=== PATIENT | male | born 1955 | race African-American/Black ===

== ENCOUNTER 2017-09-06 08:58 | Inpatient (IN) ==
[2017-09-06] MEDS ORDERED: SODIUM CHLORIDE 0.9% 1,000 ML IV STA (09:56)
[2017-09-06] MEDS ORDERED: cefTRIAXone 1,000 MG in SODIUM CHLORIDE 0.9% 100 ML IV STA (10:55)
[2017-09-06] MEDS ORDERED: GENTAMICIN INJ 140 MG in SODIUM CHLORIDE 0.9% 100 ML IV STA (10:55)
[2017-09-06 11:24] LABS: Basophils % 0.2 % (0.0-0.8); Eosinophils # 0.1 10*3/uL (0.0-0.87); Eosinophils % 0.9 % (0.00-10.9); Hematocrit 39.3 VOL% (42.0-52.0); Hemoglobin 12.5 GM/DL (14.0-18.0); Immature Granulocytes % 0.7 %; Immature Granulocytes Absolute 0.06 #; Lymphocytes # 0.9 10*3/uL (1.4-4.0); Lymphocytes % 10.1 % (21.2-54.2); Mean Corpuscular HGB Conc 31.8 GM/DL (32-36); Mean Corpuscular Hemoglobin 28 PG (27-34); Mean Corpuscular Volume 88.1 FL (87-102); Mean Platelet Volume 8.9 FL (9.6-12.0); Monocytes % 10.6 % (1.7-12.7); Neutrophils # 6.9 10*3/uL (1.4-7.4); Neutrophils % 77.5 % (38.7-73.9); Platelet Count 399 T/CUMM (130-400); Red Blood Count 4.46 MC/CUMM (3.8-5.5); Red Cell Distribution Width 13.9 % (9.3-17.3); White Blood Count 8.9 T/CUMM (4-12)
[2017-09-06 11:41] LABS: Apearance,Urine CLEAR (Clear); Bilirubin,Urine Negative (Negative); Blood, Urine Negative (Negative); Glucose,Urine (UA) Negative (Negative); Ketones,Urine Negative (Negative); Nitrite,Urine Negative (Negative); Protein,Urine Negative; RBC,Urine 1 /HPF (0-4); Squamous Epithelial Cell,Urine Occasional /HPF (0-10); Urine Color Straw (Yellow); Urine Specific Gravity 1.002 (1.001-1.035); Urine Urobilinogen < 2.0 EU/DL (0.2-1.0); WBC,Urine <1 /HPF (0-6)
[2017-09-06 11:45] LABS: Calcium 9.4 MG/DL (8.5-10.1); Osmolality,Calculated 272.7 MOS/KG (273-304); Potassium 4.1 MMOL/L (3.5-5.1)
[2017-09-06] MEDS ORDERED: HYDROCORTISONE 25 MG SUPP RECTAL PRN (12:28)
[2017-09-06] MEDS ORDERED: MECLIZINE 25 MG TABLET PO PRN (12:28)
[2017-09-06] MEDS ORDERED: ONDANSETRON 4 MG/2 ML VIAL IV PRN (13:03)
[2017-09-06] MEDS ORDERED: ACETAMINOPHEN 325 MG TABLET PO PRN (13:03)
[2017-09-06] MEDS: cefTRIAXone 1,000 MG in SYRINGE 1 EACH IV SCH (15:10)
[2017-09-06] MEDS: SODIUM CHLORIDE 0.9% 1,000 ML IV SCH (16:04)
[2017-09-06] MEDS ORDERED: ASPIRIN 325 MG TABLET ONE (20:00)
[2017-09-06] MEDS ORDERED: NITROGLYCERIN SL 0.4 MG TABLET SL ONE (20:00)
[2017-09-06] MEDS: GENTAMICIN INJ 160 MG in SODIUM CHLORIDE 0.9% 100 ML IV SCH (20:55)
[2017-09-06] MEDS: METOPROLOL TARTRATE 50 MG TABLET PO SCH (20:58)
[2017-09-06] MEDS: DOCUSATE SODIUM 100 MG CAPSULE PO SCH (20:58)
[2017-09-06] MEDS: FLUTICASONE 50 MCG NASAL SPRAY 16 GM BOTTLE BOTH NARES SCH (20:58)
[2017-09-06] MEDS: FLUTICASONE/SALMETEROL 250-50 DISKUS 14 DOSE INH SCH (21:01)
[2017-09-07] MEDS: SODIUM CHLORIDE 0.9% 1,000 ML IV SCH ×3 (02:22→14:18)
[2017-09-07] MEDS: GENTAMICIN INJ 160 MG in SODIUM CHLORIDE 0.9% 100 ML IV SCH ×3 (03:36→19:59)
[2017-09-07] MEDS: TAMSULOSIN 0.4 MG CAPSULE PO SCH (08:58)
[2017-09-07] MEDS: MELOXICAM 7.5 MG TABLET PO SCH (08:58)
[2017-09-07] MEDS: PANTOPRAZOLE 40 MG TABLET PO SCH ×2 (08:59→09:38)
[2017-09-07] MEDS: DOCUSATE SODIUM 100 MG CAPSULE PO SCH ×2 (08:59→19:59)
[2017-09-07] MEDS: ACETAMINOPHEN/CODEINE 300-30 MG TABLET PO PRN ×2 (08:59→18:46)
[2017-09-07] MEDS: METOPROLOL TARTRATE 50 MG TABLET PO SCH ×2 (09:00→19:59)
[2017-09-07] MEDS: LOSARTAN 50 MG TABLET PO SCH (09:00)
[2017-09-07] MEDS: FLUTICASONE/SALMETEROL 250-50 DISKUS 14 DOSE INH SCH ×2 (09:00→20:07)
[2017-09-07] MEDS: FLUTICASONE 50 MCG NASAL SPRAY 16 GM BOTTLE BOTH NARES SCH ×2 (09:02→20:08)
[2017-09-07] MEDS: cefTRIAXone 1,000 MG in SYRINGE 1 EACH IV SCH (14:13)
[2017-09-07] MEDS: ENOXAPARIN 40 MG/0.4 ML SYRINGE SUBCUT SCH (14:17)
[2017-09-08] MEDS: SODIUM CHLORIDE 0.9% 1,000 ML IV SCH ×2 (00:42→07:51)
[2017-09-08] MEDS: GENTAMICIN INJ 160 MG in SODIUM CHLORIDE 0.9% 100 ML IV SCH ×3 (03:44→19:59)
[2017-09-08 06:57] LABS: Calcium 8.6 MG/DL (8.5-10.1); Potassium 4.7 MMOL/L (3.5-5.1)
[2017-09-08 07:04] LABS: Basophils % 0.2 % (0.0-0.8); Eosinophils # 0.1 10*3/uL (0.0-0.87); Eosinophils % 1.5 % (0.00-10.9); Hematocrit 36.4 VOL% (42.0-52.0); Hemoglobin 11.4 GM/DL (14.0-18.0); Immature Granulocytes % 0.2 %; Immature Granulocytes Absolute 0.01 #; Lymphocytes # 0.9 10*3/uL (1.4-4.0); Lymphocytes % 13.9 % (21.2-54.2); Mean Corpuscular HGB Conc 31.3 GM/DL (32-36); Mean Corpuscular Hemoglobin 28 PG (27-34); Mean Corpuscular Volume 88.6 FL (87-102); Mean Platelet Volume 9.3 FL (9.6-12.0); Monocytes # 0.6 10*3/uL (0.11-0.8); Monocytes % 9.5 % (1.7-12.7); Neutrophils # 4.9 10*3/uL (1.4-7.4); Neutrophils % 74.7 % (38.7-73.9); Platelet Count 441 T/CUMM (130-400); Red Blood Count 4.11 MC/CUMM (3.8-5.5); Red Cell Distribution Width 13.6 % (9.3-17.3); White Blood Count 6.5 T/CUMM (4-12)
[2017-09-08] MEDS: PANTOPRAZOLE 40 MG TABLET PO SCH ×2 (09:52→09:56)
[2017-09-08] MEDS: DOCUSATE SODIUM 100 MG CAPSULE PO SCH ×2 (09:52→20:03)
[2017-09-08] MEDS: METOPROLOL TARTRATE 50 MG TABLET PO SCH ×2 (09:52→21:08)
[2017-09-08] MEDS: TAMSULOSIN 0.4 MG CAPSULE PO SCH (09:52)
[2017-09-08] MEDS: LOSARTAN 50 MG TABLET PO SCH (09:52)
[2017-09-08] MEDS: MELOXICAM 7.5 MG TABLET PO SCH (09:52)
[2017-09-08] MEDS: FLUTICASONE/SALMETEROL 250-50 DISKUS 14 DOSE INH SCH ×2 (09:53→20:03)
[2017-09-08] MEDS: FLUTICASONE 50 MCG NASAL SPRAY 16 GM BOTTLE BOTH NARES SCH ×2 (09:53→20:03)
[2017-09-08] MEDS: cefTRIAXone 1,000 MG in SYRINGE 1 EACH IV SCH (14:49)
[2017-09-08] MEDS: ENOXAPARIN 40 MG/0.4 ML SYRINGE SUBCUT SCH (14:50)
[2017-09-09] MEDS: GENTAMICIN INJ 160 MG in SODIUM CHLORIDE 0.9% 100 ML IV SCH ×3 (03:23→20:58)
[2017-09-09] MEDS: FLUTICASONE 50 MCG NASAL SPRAY 16 GM BOTTLE BOTH NARES SCH ×2 (09:33→21:01)
[2017-09-09] MEDS: DOCUSATE SODIUM 100 MG CAPSULE PO SCH ×2 (09:33→21:00)
[2017-09-09] MEDS: LOSARTAN 50 MG TABLET PO SCH (09:33)
[2017-09-09] MEDS: FLUTICASONE/SALMETEROL 250-50 DISKUS 14 DOSE INH SCH ×2 (09:33→21:01)
[2017-09-09] MEDS: METOPROLOL TARTRATE 50 MG TABLET PO SCH ×2 (09:34→21:00)
[2017-09-09] MEDS: TAMSULOSIN 0.4 MG CAPSULE PO SCH (09:34)
[2017-09-09] MEDS: MELOXICAM 7.5 MG TABLET PO SCH (09:34)
[2017-09-09] MEDS: PANTOPRAZOLE 40 MG TABLET PO SCH (09:35)
[2017-09-09] MEDS: ENOXAPARIN 40 MG/0.4 ML SYRINGE SUBCUT SCH (15:35)
[2017-09-09] MEDS: cefTRIAXone 1,000 MG in SYRINGE 1 EACH IV SCH (15:36)
[2017-09-10] MEDS: GENTAMICIN INJ 160 MG in SODIUM CHLORIDE 0.9% 100 ML IV SCH ×3 (03:19→20:39)
[2017-09-10] MEDS: TAMSULOSIN 0.4 MG CAPSULE PO SCH (09:41)
[2017-09-10] MEDS: FLUTICASONE/SALMETEROL 250-50 DISKUS 14 DOSE INH SCH ×2 (09:41→20:39)
[2017-09-10] MEDS: DOCUSATE SODIUM 100 MG CAPSULE PO SCH ×2 (09:41→20:39)
[2017-09-10] MEDS: FLUTICASONE 50 MCG NASAL SPRAY 16 GM BOTTLE BOTH NARES SCH ×2 (09:41→20:39)
[2017-09-10] MEDS: LOSARTAN 50 MG TABLET PO SCH (09:41)
[2017-09-10] MEDS: PANTOPRAZOLE 40 MG TABLET PO SCH (09:41)
[2017-09-10] MEDS: MELOXICAM 7.5 MG TABLET PO SCH (09:41)
[2017-09-10] MEDS: DOXYCYCLINE HYCLATE 100 MG CAPSULE PO SCH (09:41)
[2017-09-10] MEDS: METOPROLOL TARTRATE 50 MG TABLET PO SCH ×2 (09:42→20:39)
[2017-09-10] MEDS: cefTRIAXone 1,000 MG in SYRINGE 1 EACH IV SCH (14:24)
[2017-09-10] MEDS: ENOXAPARIN 40 MG/0.4 ML SYRINGE SUBCUT SCH (14:35)
[2017-09-11] MEDS: GENTAMICIN INJ 160 MG in SODIUM CHLORIDE 0.9% 100 ML IV SCH (03:18)
[2017-09-11 05:45] LABS: Basophils % 0.5 % (0.0-0.8); Eosinophils # 0.1 10*3/uL (0.0-0.87); Eosinophils % 2.3 % (0.00-10.9); Hematocrit 37.9 VOL% (42.0-52.0); Hemoglobin 11.9 GM/DL (14.0-18.0); Immature Granulocytes % 0.5 %; Immature Granulocytes Absolute 0.02 #; Lymphocytes # 0.9 10*3/uL (1.4-4.0); Lymphocytes % 22.4 % (21.2-54.2); Mean Corpuscular HGB Conc 31.4 GM/DL (32-36); Mean Corpuscular Hemoglobin 27 PG (27-34); Mean Corpuscular Volume 86.7 FL (87-102); Mean Platelet Volume 9.1 FL (9.6-12.0); Monocytes # 0.6 10*3/uL (0.11-0.8); Monocytes % 15.1 % (1.7-12.7); Neutrophils # 2.4 10*3/uL (1.4-7.4); Neutrophils % 59.2 % (38.7-73.9); Platelet Count 490 T/CUMM (130-400); Red Blood Count 4.37 MC/CUMM (3.8-5.5); Red Cell Distribution Width 13.6 % (9.3-17.3)
[2017-09-11 06:06] LABS: Calcium 9.1 MG/DL (8.5-10.1); Osmolality,Calculated 278.4 MOS/KG (273-304); Potassium 5.9 MMOL/L (3.5-5.1)
[2017-09-11] MEDS: METOPROLOL TARTRATE 50 MG TABLET PO SCH (09:20)
[2017-09-11] MEDS: LOSARTAN 50 MG TABLET PO SCH (09:20)
[2017-09-11] MEDS: MELOXICAM 7.5 MG TABLET PO SCH (09:20)
[2017-09-11] MEDS: TAMSULOSIN 0.4 MG CAPSULE PO SCH (09:20)
[2017-09-11] MEDS: DOXYCYCLINE HYCLATE 100 MG CAPSULE PO SCH (09:20)
[2017-09-11] MEDS: PANTOPRAZOLE 40 MG TABLET PO SCH (09:21)
[2017-09-11] MEDS: DOCUSATE SODIUM 100 MG CAPSULE PO SCH (09:21)
[2017-09-11] MEDS: FLUTICASONE/SALMETEROL 250-50 DISKUS 14 DOSE INH SCH (09:22)
[2017-09-11] MEDS: FLUTICASONE 50 MCG NASAL SPRAY 16 GM BOTTLE BOTH NARES SCH (09:22)
[2017-09-11 09:55] VITALS: BP 126/70
== END 2017-09-11 09:48 | disposition home or self-care (01) | DRG 863 ==
LOC: N.ED 08:58 → N.EDINP 13:03 → N.5E 14:37
PROVIDERS: ADMIT Internal Medicine; ATTEND Family Medicine